=== PATIENT | male | born 2000 | race Two or more races ===

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

== ENCOUNTER 2024-11-17 19:19 | Emergency (ER) | payer MEDICAID, SELFPAY ==
--- NOTE | ~2024-11-17 | XR_ITS ---
CLINICAL HISTORY: shortness of breath 2 view chest x-ray Comparison: None Findings: Heart size is normal. No consolidation, pleural effusion or pneumothorax. No acute fracture. IMPRESSION: 1. No acute findings. This document has been electronically signed by: Yahaira Oneal MD on 11/17/2024 20:33:16
--- NOTE | ~2024-11-17 | CT_ITS ---
CLINICAL HISTORY: sob, cough, tachycardia CT chest with contrast Comparison: None Findings: The heart is normal size. No pericardial effusion. Thoracic aorta is normal in size. The visualized thyroid and mediastinum are unremarkable. No consolidation or effusion. No pneumothorax. The visualized upper abdomen demonstrates no acute process. No acute fractures. IMPRESSION: 1. No acute findings. This document has been electronically signed by: Yahaira Oneal MD on 11/17/2024 23:17:32
[2024-11-17 19:32] VITALS: BP 124/75; PULSE 103; PULSE 96; RESP 20; TEMP 37.4; O2SAT 100; BMI 23.0
[2024-11-17 19:37] VITALS: BP 123/54; PULSE 103; RESP 20; TEMP 37.4; O2SAT 100
--- NOTE | 2024-11-17 19:51 | ECG_ITS ---
Test Reason : DYSPNEA Blood Pressure : */* mmHG Vent. Rate : 100 BPM Atrial Rate : 100 BPM P-R Int : 136 ms QRS Dur : 98 ms QT Int : 328 ms P-R-T Axes : 67 86 -9 degrees QTcB Int : 423 ms Normal sinus rhythm ST & T wave abnormality, consider inferior ischemia Abnormal ECG No previous ECGs available Referred By: Janeen Nguyen Electronically Signed By: NICHELLE MUÑOZ
--- NOTE | 2024-11-17 19:52 | ED_ITS ---
HPI - General Adult General Chief complaint: Dyspnea Stated complaint: Asthma exacerbation Time Seen by Provider: 11/17/24 19:23 Source: patient and EMS Mode of arrival: EMS Limitations: no limitations History of Present Illness HPI narrative: Patient is a 22-year-old male who presents emergency department for evaluation of increasing shortness of breath and concern for asthma exacerbation since yesterday. He states that he has not been taking any asthma medications including his albuterol inhaler or daily inhaler for at least a few months. He states that he was previously incarcerated for approximately 1 year, has not been taking his medications since then. He does admit to recent sick contact with a younger cousin being ill. Shortness of breath started last night, admits to having intermittent sweats, chills, single episode of posttussive vomiting yesterday, noticed a few specks of blood in the vomit. No associated abdominal pain, nausea, further episodes of vomiting, or diarrhea. Admits to having associated sore throat, no dysphagia or odynophagia. pre-hospital he received 2 DuoNeb updrafts, Solu-Medrol 125 mg IV and magnesium 2 g IV. denies neck pain, chest pain, palpitations, numbness or tingling of the extremities, recent lower extremity pain or swelling. Denies alcohol use, recreational drugs, or smoking tobacco. Related Data Previous Rx's ?Medication ?Instructions ?Recorded prednisone 20 mg tablet 40 mg (2 x 20 mg) PO DAILY 4 days 02/20/21 #8 tabs albuterol sulfate 90 mcg/actuation 2 puff inhalation Q4-6H PRN 11/18/24 aerosol inhaler shortness of breath or wheezing #6.7 grams prednisone 20 mg tablet 40 mg (2 x 20 mg) PO DAILY #10 tabs 11/18/24 Allergies Allergy/AdvReac Type Severity Reaction Status Date / Time GREEN BEANS Allergy Unknown UNKNOWN Uncoded 11/17/24 19:35 Review of Systems 2 Review of Systems: Yes all other systems are reviewed and are negative PMFSH Past Medical History Attestation statement: The following information was validated with the patient. Source: old records reviewed Medical History Asthma Surgical History No history of previous surgery Social History Social History (System 03/01/21 @ 12:38 by Domi Brewster) Smoked in Last 30 Days: Yes Use of substances other than those prescribed or required for medical reasons: Yes Substance Use Type: Marijuana Advance Directives: No Advance Directives Information Provided: No Physical Exam ED Vital Signs: Vital Signs - 24 hr 11/17/24 19:32 11/17/24 19:37 11/17/24 20:14 Temperature 99.4 F 99.4 F 99.2 F Pulse Rate 103 H 103 H 109 H Respiratory Rate 20 20 16 Blood Pressure 123/54 L 127/60 Pulse Oximetry 100 100 98 Oxygen Delivery Method Room Air 11/17/24 21:08 11/17/24 21:55 11/17/24 22:29 Temperature 99.9 F 99.4 F Pulse Rate 121 H 112 H 112 H Respiratory Rate 16 16 16 Blood Pressure 133/53 L 109/55 L Pulse Oximetry 98 99 Oxygen Delivery Method Room Air Room Air 11/18/24 00:37 Temperature 98.5 F Pulse Rate 85 Respiratory Rate 18 Blood Pressure 126/62 Pulse Oximetry 97 Oxygen Delivery Method Room Air BMI result Body Mass Index 23.0 Appearance: Alert.?Oriented to person, place and time. No acute distress.?Normal affect. Eyes: Pupils equal, round and reactive to light.? ENT: Pharynx erythematous without tonsillar hypertrophy or exudates. Uvula is midline. No trismus. No drooling. Neck: Normal inspection.? Neck supple.?? CVS: Heart sounds normal. Tachycardic. Pulses normal.?? Respiratory: No respiratory distress.? Lung sounds clear to auscultation bilaterally?? Abdomen: Soft and non-tender. Normoactive bowel sounds. Skin: Skin warm and dry.? Normal skin color.? Extremities: No lower extremity edema.? No calf ttp? Neuro: Moves all extremities spontaneously. Sensation intact bilaterally. No focal neuro deficits. Ambulates with normal steady gait. Course Reevaluation(s) Reevaluation #1: Patient being discharged home with albuterol inhaler in addition to steroids for asthma exacerbation potentially secondary to viral upper respiratory infection. Medications Administered Discontinued Medications Generic Name Dose Route Start Last Admin Trade Name Freq PRN Reason Stop Dose Admin Albuterol Sulfate 5 mg/ 0 mg 11/17/24 20:28 11/17/24 20:00 Albuterol/Ipratropium 3 ml INHALE 11/17/24 20:29 7.5 each ONCE ONE Administration Sodium Chloride 1,000 mls @ 999 mls/hr 11/17/24 22:15 11/17/24 23:23 Ns IV 11/17/24 23:15 Infused .Q1H1M ZAHEER Infusion Iohexol 85 ml 11/17/24 22:20 11/17/24 22:20 Iohexol 350 Mg/Ml 100 Ml Infus..Btl IV 11/17/24 22:21 85 ml ONCE ONE Administration Medical Decision Making Medical Decision Making [facility] Narrative: Patient is a 22-year-old male with past medical history of asthma who presents emergency department expressing concern for an asthma exacerbation with a onset of symptoms yesterday as per HPI. Overall he appears sinus fatigued at the time my evaluation, he is mildly tachycardic, afebrile, room air without hypoxia or tachypnea. He did however receive significant pre-hospital treatment including 2 DuoNeb updrafts, magnesium 2 g IV and Solu-Medrol 125 mg IV. He expressed a recent incarceration for approximately 1 year, denies having any known ill contacts while incarcerated, was able to play basketball incarcerated without difficulty. Began having issues with shortness of breath since yesterday as per HPI. Lung sounds at the time of my evaluation are clear post treatment. Has a mild pharyngitis without evidence of RPA/HOUSEHOLD ASSISTANT. No rash or lesions, urticaria, or evidence of angioedema to suggest allergic reaction/anaphylaxis. No swallowing difficulties to suggest aspiration. No associated chest pain, lower extremity redness pain or swelling, history of VTE/malignancy to suggest ACS. CHF, pericardial effusion, or pulmonary embolism. No palpitations or history of known arrhythmias. No recent trauma or injury, no tracheal deviation, unlikely tension pneumothorax. No history of diabetes, unlikely DKA. No acute bleeding or known anemia, no associated dizziness fatigue or chest pain to suggest acute anemia. Will obtain CBC to evaluate for leukocytosis/ anemia, CMP and lipase to evaluate for abnormal electrolytes /abnormal renal function/ abnormal hepatic/biliary function, EKG and troponin to evaluate for ischemia/ACS. Chest x-ray to evaluate for consolidation/ infiltrate/ mass/ pulmonary congestion, viral serologies and group a strep testing Differential Diagnosis Differential Diagnoses: The differential diagnosis associated with the presentation includes ( see narrative above) Admission/Observation Consideration of admission/observation: Escalation of care including admission/observation considered Lab Data MDM Lab Attestation statement: I reviewed the patient's lab results. 11/17/24 20:18 11/17/24 20:18 Labs: Lab Results 11/17/24 11/17/24 Range/Units 20:18 20:24 WBC 17.8 H (4.8-10.8) X10*3/uL RBC 4.26 L (4.60-5.80) X10*6/uL Hgb 12.2 L (14.0-18.0) g/dl Hct 36.4 L (42.0-52.0) % MCV 85.4 (80.0-98.0) fL MCH 28.6 (27.0-33.0) pg MCHC 33.5 (31.0-36.0) g/dl RDW 13.0 (11.0-16.0) % Plt Count 204 (160-400) X10*3/uL MPV 9.9 (9.4-12.4) fL Immature Gran % (Auto) 0.6 H (0.0-0.4) % Neut % (Auto) 79.3 H (45-73) % Lymph % (Auto) 15.6 L (20-40) % [place] % (Auto) 3.8 (2-11) % Eos % (Auto) 0.4 (0-4) % Baso % (Auto) 0.3 (0-2) % Lymph # (Auto) 2.8 (1.2-4.9) X10*3/uL [place] # (Auto) 0.7 (0.1-1.2) X10*3/uL Eos # (Auto) 0.1 (0.0-0.4) X10*3/uL Baso # (Auto) 0.1 (0.0-0.2) X10*3/uL Abs Immat Gran (auto) 0.10 H (0.00-0.03) X10*3/uL Absolute Neuts (auto) 14.2 H (2.0-8.3) x10*3/uL Absolute Nucleated RBC 0.000 (0.0-0.012) X10*3/uL Nucleated RBC % (auto) 0.0 (0.0-0.2) /100WBC VBG pH 7.40 (7.32-7.43) VBG pCO2 43 mmHg VBG pO2 57 mmHg VBG HCO3 26 (22-26) mmol/L VBG O2 Saturation 89.0 % VBG Base Excess 1.9 mmol/L Sodium 142 (135-145) mmol/L Potassium 3.2 L (3.3-5.1) mmol/L Chloride 109 H (96-108) mmol/L Carbon Dioxide 24 (22-29) mmol/L Anion Gap 12 (12-20) BUN 4 L (9-16) mg/dL Creatinine 0.75 (0.5-1.4) mg/dL Estim Creat Clear Calc 158.5 Estimated GFR > 60 Random Glucose 150 H (60-115) mg/dL Calcium 9.4 (8.4-10.2) mg/dL Magnesium 2.4 (1.6-2.6) mg/dL Total Bilirubin 1.0 (0.0-1.0) mg/dL AST 18 (5-37) U/L ALT 7 (0-40) U/L Alkaline Phosphatase 66 (39-117) U/L Total Protein 7.2 (6.5-8.0) g/dL Albumin 4.5 (3.5-5.0) g/dL Influenza Type A (PCR) NEGATIVE (Negative) Influenza Type B (PCR) NEGATIVE (Negative) RSV RNA Qual (PCR) NEGATIVE (Negative) SARS-CoV-2 RNA (RT-PCR) NEGATIVE (Negative) S. pyogenes GrpA NOMI Negative (Negative) Radiology Impression Discussion of test interpretation with radiology: I have reviewed the radiologist's reading. Radiologist Impression: CT chest with contrast Comparison: None Findings: The heart is normal size. No pericardial effusion. Thoracic aorta is normal in size. The visualized thyroid and mediastinum are unremarkable. No consolidation or effusion. No pneumothorax. The visualized upper abdomen demonstrates no acute process. No acute fractures. IMPRESSION: 1. No acute findings. 2 view chest x-ray Comparison: None Findings: Heart size is normal. No consolidation, pleural effusion or pneumothorax. No acute fracture. IMPRESSION: 1. No acute findings. Independent Historian Clinical information obtained from an independent historian. History obtained from or confirmed by: EMS External Record Review External record reviewed: Outpatient record Chronic Conditions Patient?s care impacted by: Other ( see narrative above) Discharge Plan Discharge Clinical Impression: Asthma with exacerbation Patient Disposition: Home, Self-Care Instructions: Asthma (ED), How to Use a Metered-Dose Inhaler (ED) Additional Instructions: Testing today does not show evidence of COVID, influenza, or RSV. Radiographic imaging of the chest does not show evidence of pneumonia. You are being treated for an asthma exacerbation. I have sent a prescription for an albuterol inhaler to the pharmacy in addition to prednisone to take daily with food to prevent stomach upset. Follow-up with primary care doctor as needed. You may return with any new or worsening symptoms or concerns. Prescriptions: New prednisone 20 mg tablet 40 mg PO DAILY Qty: 10 0RF albuterol sulfate 90 mcg/actuation HFA aerosol inhaler 2 puff inhalation Q4-6H PRN (Reason: shortness of breath or wheezing) Qty: 6.7 0RF No Action prednisone 20 mg tablet 40 mg PO DAILY 4 Days Qty: 8 0RF Referrals: [facility] [Primary Care Provider] - Print Language: Occitan
[2024-11-17] MEDS: Albuterol Sulfate 5 MG, Albuterol/Iprat 2.5/0.5MG 3 ML 3 ML INHALE (20:00)
[2024-11-17 20:14] VITALS: BP 127/60; PULSE 109; RESP 16; TEMP 37.3; O2SAT 98
[2024-11-17 20:23] LABS: MANUAL DIFF FLAG NO
[2024-11-17 20:25] LABS: Basophils Absolute Auto 0.1 X10*3/uL (0.0-0.2); Basophils Percent Auto 0.3 % (0-2); Eosinophils Absolute Auto 0.1 X10*3/uL (0.0-0.4); Eosinophils Percent Auto 0.4 % (0-4); Hematocrit 36.4 % (42.0-52.0); Hemoglobin 12.2 g/dl (14.0-18.0); Imm Gran Pct Auto 0.6 % (0.0-0.4); Lymphocytes Absolute Auto 2.8 X10*3/uL (1.2-4.9); Lymphocytes Percent Auto 15.6 % (20-40); Mean Corpuscular HGB Conc 33.5 g/dl (31.0-36.0); Mean Corpuscular Hemoglobin 28.6 pg (27.0-33.0); Mean Corpuscular Volume 85.4 fL (80.0-98.0); Mean Platelet Volume 9.9 fL (9.4-12.4); Monocytes Absolute Auto 0.7 X10*3/uL (0.1-1.2); Monocytes Percent Auto 3.8 % (2-11); Neutrophils Absolute Auto 14.2 x10*3/uL (2.0-8.3); Neutrophils Percent Auto 79.3 % (45-73); Platelet Count 204 X10*3/uL (160-400); Red Blood Count 4.26 X10*6/uL (4.60-5.80); White Blood Count 17.8 X10*3/uL (4.8-10.8)
[2024-11-17 20:31] LABS: VBG Base Excess 1.9 mmol/L; VBG HCO3 26 mmol/L (22-26); VBG pCO2 43 mmHg; VBG pO2 57 mmHg
[2024-11-17 20:36] LABS: IDNOW Serial# 58CA691E; Strep A Nucleic Acid Negative (Negative)
[2024-11-17 20:36] LABS: Venous Blood Gas Refer to POC result
[2024-11-17 20:39] LABS: Alanine Aminotransferase 7 U/L (0-40); Albumin Level 4.5 g/dL (3.5-5.0); Alkaline Phosphatase 66 U/L (39-117); Anion Gap 12 (12-20); Aspartate Amino Transferase 18 U/L (5-37); Blood Urea Nitrogen 4 mg/dL (9-16); Calcium 9.4 mg/dL (8.4-10.2); Carbon Dioxide 24 mmol/L (22-29); Chloride 109 mmol/L (96-108); Creatinine Clr Calc Pharmacy 158.5; Estimated Glomerular Filt Rate > 60; Glucose Random 150 mg/dL (60-115); Magnesium 2.4 mg/dL (1.6-2.6); Potassium 3.2 mmol/L (3.3-5.1); Sodium 142 mmol/L (135-145); Total Protein 7.2 g/dL (6.5-8.0)
[2024-11-17 21:03] LABS: Influenza A PCR NEGATIVE (Negative); Influenza B PCR NEGATIVE (Negative); Resp Syncy Virus RNA Qual PCR NEGATIVE (Negative); SARS COV2 PCR INHOUSE NEGATIVE (Negative)
[2024-11-17 21:08] VITALS: BP 133/53; PULSE 121; RESP 16; TEMP 37.7; O2SAT 98
[2024-11-17 21:55] VITALS: BP 109/55; PULSE 112; RESP 16; TEMP 37.4; O2SAT 99
[2024-11-17] MEDS: iohexoL 350 MG/ML 100 ML INFUS..BTL 85 ML IV (22:20)
[2024-11-17 22:29] VITALS: PULSE 112; RESP 16; O2SAT 96
[2024-11-17] MEDS: 0.9 % Sodium Chloride 1,000 ML 999 ML IV (22:29)
[2024-11-18 00:37] VITALS: BP 126/62; PULSE 85; RESP 18; TEMP 36.9; O2SAT 97
[2024-11-18 01:11] VITALS: BP 126/62; PULSE 85; RESP 18; TEMP 36.9; O2SAT 97
== END 2024-11-18 01:12 | disposition home or self-care (01) ==
PROVIDERS: Nurse Practitioner Family; Emergency Provider Emergency Medicine Emergency Medical Services
DX: J45.901 Unspecified asthma with (acute) exacerbation (principal); R06.02 Shortness of breath; R05.9 Cough, unspecified; R00.0 Tachycardia, unspecified; Z79.899 Other long term (current) drug therapy; Z03.818 Encounter for observation for suspected exposure to other biological agents ruled out
CPT/HCPCS: 0241U; 36415; 71046; 71260; 80053; 82803; 83735; 85025; 87651; 93005; 94640; 96360; 99284; 99285; Q9967

== ENCOUNTER → 2024-11-17 19:50 | Outpatient (BNV) | payer MEDICAID, SELFPAY | PROVIDERS: Emergency Provider Emergency Medicine Emergency Medical Services; Visit Provider Specialist | DX: R06.02 Shortness of breath (principal) | CPT/HCPCS: 71046; 71260 ==

== ENCOUNTER → 2024-11-17 19:51 | Outpatient (BNV) | payer MEDICAID, SELFPAY | PROVIDERS: Emergency Provider Emergency Medicine Emergency Medical Services; Visit Provider Internal Medicine | DX: R94.31 Abnormal electrocardiogram [ECG] [EKG] (principal); R06.00 Dyspnea, unspecified | CPT/HCPCS: 93010 ==

== ENCOUNTER 2025-08-12 17:35 | Emergency (ER) | payer MEDICAID, SELFPAY ==
--- NOTE | ~2025-08-12 | XR_ITS ---
CLINICAL HISTORY: chest pain 2 view chest x-ray. Comparison: 11/17/2024 Findings: No consolidation or effusion. Cardiac and mediastinal contours are stable. Bones unremarkable. Impression: 1. No acute pulmonary disease. This document has been electronically signed by: Corbin Chaney MD on 08/12/2025 19:02:47
--- NOTE | 2025-08-12 17:39 | ECG_ITS ---
Test Reason : cp Blood Pressure : */* mmHG Vent. Rate : 83 BPM Atrial Rate : 83 BPM P-R Int : 140 ms QRS Dur : 92 ms QT Int : 328 ms P-R-T Axes : 53 88 0 degrees QTcB Int : 385 ms Normal sinus rhythm Incomplete right bundle branch block T wave abnormality, consider inferior ischemia Abnormal ECG When compared with ECG of 17-Nov-2024 19:56, No significant change was found Referred By: Generic ED Physician Electronically Signed By: JERAD MCKEON MD
--- NOTE | 2025-08-12 17:42 | ED_ITS ---
HPI - General Adult General Chief complaint: Chest Pain Stated complaint: Chest pain since 9am, Time Seen by Provider: 08/12/25 17:42 Source: patient, EMS and other (patient's girlfriend) Mode of arrival: EMS Limitations: no limitations History of Present Illness ED Provider: Sofiya Guerrier PA-C HPI narrative: Patient is a 25 year old male with a history of asthma presenting to the emergency department today with chest pain, nausea, and vomiting. Patient states that over the last day he has chest pain with nausea and vomiting. Patient denies any other complaints at this time. Relieving factors: none Exacerbating factors: none Associated symptoms: chest pain and nausea/vomiting Treatments prior to arrival: none Related Data Previous Rx's ?Medication ?Instructions ?Recorded prednisone 20 mg tablet 40 mg (2 x 20 mg) PO DAILY 4 days 02/20/21 #8 tabs albuterol sulfate 90 mcg/actuation 2 puff inhalation Q 4-6H PRN 11/18/24 aerosol inhaler shortness of breath or wheez ing #6.7 grams prednisone 20 mg tablet 40 mg (2 x 20 mg) PO DAILY # 10 tabs 11/18/24 ondansetron 4 mg disintegrating 4 mg PO Q8H 3 days #9 tabs 08/12/25 tablet Allergies Allergy/AdvReac Type Severity Reaction Status Date / Time GREEN [place] Allergy Unknown UNKNOWN Uncoded 08/12/25 17:50 Review of Systems 2 Constitutional: Constitutional: Reports as per HPI Eyes: Eyes: Reports as per HPI ENT: Reports as per HPI Cardiovascular: Cardiovascular: Reports as per HPI Respiratory: Respiratory: Reports as per HPI Gastrointestinal: Gastrointestinal: Reports as per HPI Genitourinary: Genitourinary: Reports as per HPI Musculoskeletal: Musculoskeletal: Reports as per HPI Integumentary/Breasts: Skin/Breast: Reports as per HPI Neurologic: Reports as per HPI Psychiatric: Psychiatric: Reports as per HPI Endocrine: Endocrine: Reports as per HPI Hematologic/Lymphatic: Hematologic/Lymphatic: Reports as per HPI Allergic/Immunologic: Allergic/Immunologic: Reports as per HPI PMF Past Medical History Attestation statement: The following information was validated with the patient. (patient's girlfriend validated all information) Source: old records reviewed and other (patient's girlfriend provided additional history and confirmed the history provided by the patient.) Medical History Asthma Surgical History No history of previous surgery Social History Social History Smoked in Last 30 Days: Yes Use of substances other than those prescribed or required for medical reasons: Yes Substance Use Type: Marijuana Substance Use Frequency: Daily Advance Directives: No Advance Directives Information Provided: Yes Do you have a plan to hurt others: No Plan Physical Exam ED Vital Signs: Vital Signs - 24 hr 08/12/25 17:46 08/12/25 19:15 08/12/25 19:22 Temperature 100.2 F 98.8 F 98.8 F Pulse Rate 85 79 79 Respiratory Rate 16 14 14 Blood Pressure 118/68 116/61 116/61 Pulse Oximetry 98 98 98 Oxygen Delivery Method Room Air Room Air Room Air BMI result Body Mass Index 22.1 Const General: cooperative, no acute distress, alert and awake Nutritional Appearance: well nourished Orientation/consciousness: patient oriented x3 HENMT Head: Yes normal to inspection and Yes atraumatic Ears: hearing grossly normal bilaterally and external ears normal General nose exam: Normal external nose present, no nasal discharge noted and no epistaxis Face and sinus: Yes normal facial exam, No abrasion and No laceration Mouth: Normal oral and palatal mucosa present, no drooling and no muffled voice Eyes General: appearance normal, both eyes and all related structures Periorbital: periorbital findings normal Eyelids: Yes eyelids normal Conjunctivae: conjunctivae normal Pupils: Equal, round and reactive pupils present EOM: EOMs intact bilaterally Neck Neck: Yes normal visual inspection and Yes full ROM Resp Effort & Inspection: normal respiratory effort and able to speak in complete sentences Neuro General: patient oriented x3, moves all extremities and CN's II-XI intact bilaterally Cranial nerves: Yes Equal, round and reactive pupils present Cognition (Neuro): normal cognition Extrem General: Yes normal to inspection, Yes full ROM and Yes capillary refill normal Psych Appearance: grossly normal Mental Status: mental status grossly normal Affect: normal affect Attitude: cooperative Thought process: Normal thought process present Thought content: Normal thought content present Insight: Good insight present (Psych) Medications Administered Discontinued Medications Generic Name Dose Route Start Last Admin Trade Name Freq PRN Reason Stop Dose Admin Sodium Chloride 1,000 mls @ 999 mls/hr 08/12/25 18:15 08/12/25 19:07 Ns IV 08/12/25 19:15 Infused .Q1H1M ZAHEER Infusion Acetaminophen 1,000 mg in 100 mls @ 400 mls/hr 08/12/25 18:02 08/12/25 18:55 Ofirmev IV 08/12/25 18:16 Infused ONCE ONE Infusion Magnesium Sulfate/Dextrose 1 gm in 100 mls @ 300 mls/hr 08/12/25 18:25 08/12/25 19:08 Magnesium Sulfate/D5w IV 08/12/25 18:44 Infused ONCE ONE Infusion Ondansetron HCl 4 mg 08/12/25 18:02 08/12/25 18:18 Ondansetron Hcl 4 Mg/2 Ml Vial IVPUSH 08/12/25 18:03 4 mg ONCE ONE Administration Medical Decision Making Medical Decision Making MDM Narrative: patient's girlfriend provided additional history and confirmed the history provided by the patient. Patient's physical exam was as noted in the physical exam portion of this note. Patient's blood work showed a magnesium of 1.5 but otherwise unremarkable. Patient's urine showed no acute process. Patient's EKG showed no obvious evidence of arrhythmia, ischemia, or infarct. Patient's chest x-ray showed no acute process. Patient's influenza test was positive. Patient's COVID-19 and RSV testing was negative. Patient received IV fluids, magnesium, and tylenol which upon re-evaluation he stated helped his symptoms some. I explained my physical exam findings as well as all test results to the patient and the patient's girlfriend. I answered all questions asked by the patient and the patient's girlfriend. I stressed the importance of the patient taking his medication as directed (either prescribed or as the over the counter packaging recommends). I stressed the importance of the patient following up with his primary care provider. I stressed the importance of the patient returning to the emergency department immediately if his symptoms were to worsen or if he were to develop any dizziness, shortness of breath, difficulty breathing, chest pain, blurry vision, loss of vision, nausea, vomiting, abdominal pain, fever, chills, back pain, or any other complaints. Patient and the patient's girlfriend verbalized agreement and understanding with this treatment plan and discharge. Differential Diagnosis Differential Diagnoses: The differential diagnosis associated with the presentation includes Viral illness COVID-19 Influenza RSV Admission/Observation Consideration of admission/observation: Escalation of care including admission/observation considered Patient would have been admitted to the hospital had his work up had any findings where hospital admission was appropriate and his clinical presentation warranted hospital admission. Lab Data [facility] Lab Attestation statement: I reviewed the patient's lab results. My interpretation of these results are in the [facility] Rationale portion of this note. 08/12/25 17:56 08/12/25 17:56 Labs: Lab Results 08/12/25 08/12/25 Range/Units 17:56 18:23 WBC 7.2 (4.8-10.8) X10*3/uL RBC 4.52 L (4.60-5.80) X10*6/uL Hgb 12.7 L (14.0-18.0) g/dl Hct 39.1 L (42.0-52.0) % MCV 86.5 (80.0-98.0) fL MCH 28.1 (27.0-33.0) pg MCHC 32.5 (31.0-36.0) g/dl RDW 12.0 (11.0-16.0) % Plt Count 167 (160-400) X10*3/uL MPV 9.5 (9.4-12.4) fL Immature Gran % (Auto) 0.3 (0.0-0.4) % Neut % (Auto) 85.8 H (45-73) % Lymph % (Auto) 5.5 L (20-40) % [place] % (Auto) 6.9 (2-11) % Eos % (Auto) 1.1 (0-4) % Baso % (Auto) 0.4 (0-2) % Lymph # (Auto) 0.4 L (1.2-4.9) X10*3/uL [place] # (Auto) 0.5 (0.1-1.2) X10*3/uL Eos # (Auto) 0.1 (0.0-0.4) X10*3/uL Baso # (Auto) 0.0 (0.0-0.2) X10*3/uL Abs Immat Gran (auto) 0.02 (0.00-0.03) X10*3/uL Absolute Neuts (auto) 6.2 (2.0-8.3) x10*3/uL Absolute Nucleated RBC 0.000 (0.0-0.012) X10*3/uL Nucleated RBC % (auto) 0.0 (0.0-0.2) /100WBC Sodium 139 (135-145) mmol/L Potassium 3.6 (3.3-5.1) mmol/L Chloride 106 (96-108) mmol/L Carbon Dioxide 26 (22-29) mmol/L Anion Gap 11 L (12-20) BUN 7 L (9-16) mg/dL Creatinine 0.81 (0.5-1.4) mg/dL Estim Creat Clear Calc 140.2 Estimated GFR > 60 Random Glucose 99 (60-115) mg/dL Calcium 9.8 (8.4-10.2) mg/dL Magnesium 1.5 L (1.6-2.6) mg/dL Total Bilirubin 0.5 (0.0-1.0) mg/dL AST 25 (5-37) U/L ALT 17 (0-40) U/L Alkaline Phosphatase 56 (39-117) U/L Troponin I High Sens < 2.7 (<3.5-35.0) ng/L NT-Pro-B Natriuret Pep 23.3 (<300) pg/mL Total Protein 7.1 (6.5-8.0) g/dL Albumin 4.7 (3.5-5.0) g/dL Urine Color Yellow Urine Appearance Clear Urine pH 6.0 (5.0-9.0) Ur Specific [place] <= 1.005 (1.005-1.025) Urine Protein Negative (Neg-Trace) mg/dL Urine Glucose (UA) Negative (Negative) mg/dL Urine Ketones Negative (Negative) mg/dL Urine Blood Negative (Negative) Urine Nitrite Negative (Negative) Ur Leukocyte Esterase Negative (Negative) Urine Opiates Screen Not Detected (Not Detect) Ur Buprenorphine Scrn Not Detected (Not Detect) ng/mL Ur Oxycodone Screen Not Detected (Not Detect) ng/mL Urine Methadone Screen Not Detected (Not Detect) ng/mL Urine Fentanyl Screen Not Detected (Not Detect) Ur Barbiturates Screen Not Detected (Not Detect) Ur Phencyclidine Scrn Not Detected (Not Detect) Ur Amphetamines Screen Not Detected (Not Detect) U Benzodiazepines Scrn Not Detected (Not Detect) Urine Cocaine Screen Not Detected (Not Detect) U Marijuana (THC) Screen POSITIVE H (Not Detect) Influenza Type A (PCR) POSITIVE A (Negative) Influenza Type B (PCR) NEGATIVE (Negative) RSV RNA Qual (PCR) NEGATIVE (Negative) SARS-CoV-2 RNA (RT-PCR) NEGATIVE (Negative) Independent Interpretation I performed an independent interpretation of an: EKG and Plain X-Ray Interpretation: My interpretation is in agreement with the radiologist's impression of this imaging study as written below. CLINICAL HISTORY: chest pain 2 view chest x-ray. Comparison: 11/17/2024 Findings: No consolidation or effusion. Cardiac and mediastinal contours are stable. Bones unremarkable. Impression: 1. No acute pulmonary disease. This document has been electronically signed by: Corbin Chaney MD on 08/12/2025 19:02:47 Dictated By: Corbin Chaney MD Signed By: Electronically signed by Corbin Chaney MD 08/12/25 1904 I independently interpreted this EKG and am in agreement with the below findings: Vent. Rate: 83 BPM Atrial Rate: 83 BPM P-R Int: 140 ms QRS Dur: 92 ms QT Int: 328 ms P-R-T Axes: 53 88 0 degrees QTcB Int: 385 ms Normal sinus rhythm Incomplete right bundle branch block When compared with ECG of 17-Nov-2024 19:56, No significant change was found DD/ [id number] Radiology Impression Discussion of test interpretation with radiology: I have reviewed the radiologist's reading. Independent Historian Clinical information obtained from an independent historian. History obtained from or confirmed by: EMS (EMS provided additional history and confirmed the history provided by the patient. ) and Other (Patient's girlfriend provided additional history and confirmed the history provided by the patient. ) Prescription Management I considered prescription management with: Antiviral (I considered prescribing the patient tamiflu however, the patient's current clinical presentation did not warrant it at this time. ) Critical Care Time Critical Care Time Critical Care Time: Yes Total Critical Care Time: 33 Attestation: I spent 33 minutes of Critical Care Time with this patient. This does not include time spent on separately reported billable procedures. Discharge Plan Discharge Clinical Impression: Influenza, Hypomagnesemia Patient Disposition: Home, Self-Care Instructions: Influenza (DC), Hypomagnesemia (ED) Additional Instructions: Your influenza testing is positive. IF you are prescribed home medications and/or you are taking over the counter medications at home - it is very important you continue to do so as prescribed / directed unless told otherwise by a healthcare provider. Follow up with your primary care provider. Do your best to stay well hydrated and rest. Return to the emergency department immediately if your symptoms worsen or if you develop any numbness, tingling, dizziness, shortness of breath, difficulty breathing, chest pain, blurry vision, loss of vision, nausea, vomiting, abdominal pain, fever, chills, back pain, or any other complaints. L If you do not have a primary care provider - call any of the below numbers to establish and follow up with a primary care provider. [facility] [place] [facility] [place] [phone] [place] [address], [address] [facility] ([address] [place]) [phone] [place] [address], [address] [facility], [id number] [facility] [place] [place]) [phone] [place] [address], [address] [facility], [address] [facility] [place]) [phone] [place] [address] [address] [facility], [address] [facility] [phone] [address] [facility], [address] Please see the information below about our Patient Portal. If you are not yet enrolled in the [facility] Patient Portal, you will receive an enrollment email invitation following your visit to any [facility] care setting. You may also self-enroll in the Patient Portal by visiting our website: [email or web address] The following information is required to access the Patient Portal: - Your [facility] [place] Number - Your personal home email address (must match what is in your electronic medical record, Registration staff can assist with this) - Name - Date of Capabilities of the Patient Portal: - Message some providers - View upcoming appointments - Access your health summary, medical history, and visit history - View current conditions and allergies - View procedure and lab results - View your medications, including guidelines, side effects, and precautions - Complete pre-appointment questionnaires requested by your provider - Ready summary reports of your office visits and procedures To access the Patient Portal Mobile [employer], follow these directions: - Search [employer] in the [employer] Store or MobileWebsites Store - Download the [employer] - Search for [facility] - Enter your login/password Prescriptions: New ondansetron 4 mg tablet,disintegrating 4 mg PO Q8H 3 Days Qty: 9 0RF No Action prednisone 20 mg tablet 40 mg PO DAILY 4 Days Qty: 8 0RF prednisone 20 mg tablet 40 mg PO DAILY Qty: 10 0RF albuterol sulfate 90 mcg/actuation HFA aerosol inhaler 2 puff inhalation Q4-6H PRN (Reason: shortness of breath or wheezing) Qty: 6.7 0RF Stand Alone Forms: Work/School Release Interventions: ED Discharge Assessment Last Done: 08/12/25 19:22 Discharge Date/Time: 08/12/25 19:22 Print Language: Mongolian
[2025-08-12 17:44] VITALS: BP 126/75; PULSE 87; O2SAT 100
[2025-08-12 17:46] VITALS: BP 118/68; PULSE 85; RESP 16; TEMP 37.9; O2SAT 98; BMI 22.1
[2025-08-12 18:01] LABS: MANUAL DIFF FLAG NO
[2025-08-12 18:03] LABS: Hematocrit 39.1 % (42.0-52.0); Hemoglobin 12.7 g/dl (14.0-18.0); Imm Gran Abs Auto 0.02 X10*3/uL (0.00-0.03); Imm Gran Pct Auto 0.3 % (0.0-0.4); Lymphocytes Absolute Auto 0.4 X10*3/uL (1.2-4.9); Mean Corpuscular HGB Conc 32.5 g/dl (31.0-36.0); Mean Corpuscular Hemoglobin 28.1 pg (27.0-33.0); Mean Corpuscular Volume 86.5 fL (80.0-98.0); NRBC Abs Auto 0.000 X10*3/uL (0.0-0.012); NRBC Pct Auto 0.0 /100WBC (0.0-0.2); Platelet Count 167 X10*3/uL (160-400); Red Blood Count 4.52 X10*6/uL (4.60-5.80); White Blood Count 7.2 X10*3/uL (4.8-10.8)
[2025-08-12 18:17] LABS: Alanine Aminotransferase 17 U/L (0-40); Albumin Level 4.7 g/dL (3.5-5.0); Alkaline Phosphatase 56 U/L (39-117); Anion Gap 11 (12-20); Aspartate Amino Transferase 25 U/L (5-37); Blood Urea Nitrogen 7 mg/dL (9-16); Calcium 9.8 mg/dL (8.4-10.2); Carbon Dioxide 26 mmol/L (22-29); Chloride 106 mmol/L (96-108); Creatinine Clr Calc Pharmacy 140.2; Estimated Glomerular Filt Rate > 60; Magnesium 1.5 mg/dL (1.6-2.6); Potassium 3.6 mmol/L (3.3-5.1); Sodium 139 mmol/L (135-145); Total Protein 7.1 g/dL (6.5-8.0)
[2025-08-12 18:24] LABS: Troponin-I High Sensitivity < 2.7 ng/L (<3.5-35.0)
[2025-08-12 18:27] LABS: NT Pro B Type Natriuretic Pept 23.3 pg/mL (<300)
[2025-08-12 18:40] LABS: Cannabinoid Screen Urine POSITIVE (Not Detect)
[2025-08-12 18:43] LABS: Appearance Urine Clear; Glucose Urine UA Negative (Negative); PH 6.0 (5.0-9.0); Specific Gravity - Urine <= 1.005 (1.005-1.025)
[2025-08-12 18:56] LABS: Resp Syncy Virus RNA Qual PCR NEGATIVE (Negative); SARS COV2 PCR INHOUSE NEGATIVE (Negative)
[2025-08-12 19:15] VITALS: BP 116/61; PULSE 79; RESP 14; TEMP 37.1; O2SAT 98
[2025-08-12 19:22] VITALS: BP 116/61; PULSE 79; RESP 14; TEMP 37.1; O2SAT 98
== END 2025-08-12 19:22 | disposition home or self-care (01) ==
PROVIDERS: Physician Assistant Medical; Emergency Provider Student in an Organized Health Care Education/Training Program
DX: J10.1 Influenza due to other identified influenza virus with other respiratory manifestations (principal); E83.42 Hypomagnesemia; R07.9 Chest pain, unspecified; R11.2 Nausea with vomiting, unspecified; J45.909 Unspecified asthma, uncomplicated
CPT/HCPCS: 36415; 71046; 80053; 80307; 81003; 83735; 83880; 84484; 85025; 87637; 93005; 96365; 96375; 99284; 99285; J0131; J2405; J3475

== ENCOUNTER → 2025-08-12 17:39 | Outpatient (BNV) | payer MEDICAID, SELFPAY | PROVIDERS: Emergency Provider Student in an Organized Health Care Education/Training Program; Visit Provider Internal Medicine Cardiovascular Disease | DX: I45.10 Unspecified right bundle-branch block (principal) | CPT/HCPCS: 93010 ==

== ENCOUNTER → 2025-08-12 17:42 | Outpatient (BNV) | payer MEDICAID, SELFPAY | PROVIDERS: Emergency Provider Student in an Organized Health Care Education/Training Program; Visit Provider Radiology Diagnostic Radiology | DX: R07.9 Chest pain, unspecified (principal) | CPT/HCPCS: 71046 ==